=== PATIENT | male | born 1970 | race Hispanic/Latino ===

== ENCOUNTER 2025-02-08 06:55 | Inpatient (IN) | payer OTHER ==
[2025-02-08] MEDS ORDERED: Tranexamic Acid 1,000 MG/10 ML VIAL ONE ×2 (07:47→12:56)
[2025-02-08] MEDS ORDERED: Acetaminophen 500 MG TAB ONE (07:47)
[2025-02-08] MEDS ORDERED: Vancomycin HCl 1.5 GM VIAL ONE (07:48)
[2025-02-08 08:09] LABS: #Basophils 0.08 10x3/uL (0.0-0.2); #Eosinophils 0.47 10x3/uL (0.0-0.7); #Monocytes 0.95 10x3/uL (0.11-0.59); #Neutrophils 7.88 10x3/uL (1.40-6.50); %Basophils 0.7 % (0.0-1.0); %Eosinophils 3.8 % (0.0-10.0); %Lymphocytes 22.5 % (21.0-51.0); %Monocytes 7.8 % (0.0-10.0); %Neutrophils 64.5 % (42.0-75.0); Hematocrit 42.1 % (42.0-52.0); Hemoglobin 14.3 g/dL (14.0-18.0); Mean Corpuscular Hemoglobin 31.2 pg (27.0-31.0); Mean Corpuscular Volume 91.9 fL (78.0-98.0); Platelet Count 266 10x3/uL (130-400); Red Blood Cell (RBC) Count 4.58 mill/uL (4.70-6.10); White Blood Cell (WBC) Count 12.21 10x3/uL (4.8-10.8)
[2025-02-08 08:22] LABS: ALT (SGPT) 27 U/L (Less than 45); AST (SGOT) 30 U/L (11-34); Albumin 4.2 g/dL (3.1-4.5); Alkaline Phosphatase 73 U/L (40-110); Anion Gap 16 mmol/L (10-20); BUN (Urea Nitrogen) 14 mg/dL (8.4-25.7); Bilirubin, Total 0.7 mg/dL (0.3-1.2); Calc. Creatinine Clearance 176 mL/min (70-130); Calcium 9.5 mg/dL (7.8-10.44); Carbon Dioxide 24 mmol/L (22-29); Chloride 104 mmol/L (98-107); Globulin 3.3 g/dL (2.4-3.5); Glucose 170 mg/dL (70-105); Potassium 4.1 mmol/L (3.5-5.1); Sodium 140 mmol/L (136-145)
[2025-02-08 09:06] LABS: INR-International Normal Ratio 1.1; Prothrombin Time 14.4 sec (12.0-14.7)
[2025-02-08] MEDS ORDERED: fentaNYL PF 100 MCG/2 ML SYRINGE ONE ×4 (09:33→15:06)
[2025-02-08] MEDS ORDERED: PROPOFOL 20 ML ONE (09:33)
[2025-02-08] MEDS ORDERED: Rocuronium Bromide 10 MG/ML (10ML VIAL) ONE (09:35)
[2025-02-08] MEDS ORDERED: Lidocaine 1% PF 5 ML VIAL ONE (09:35)
[2025-02-08] MEDS ORDERED: CEFAZOLIN 2 GM VIAL ONE ×2 (10:20→16:24)
[2025-02-08] MEDS ORDERED: SUGAMMADEX SODIUM 200 MG/2 ML VIAL ONE (13:42)
[2025-02-08] MEDS ORDERED: Ondansetron PF 4 MG/2 ML Vial ONE (13:42)
[2025-02-08] MEDS ORDERED: Ondansetron PF 4 MG/2 ML Vial IVP PRN ×2 (14:30→15:25)
[2025-02-08] MEDS ORDERED: diphenhydrAMINE 25 MG CAP PO PRN ×2 (14:30→15:25)
[2025-02-08] MEDS ORDERED: oxyCODONE 5 MG TAB PO PRN (14:30)
[2025-02-08] MEDS ORDERED: diphenhydrAMINE 50 MG/ML VIAL IVP PRN (15:25)
[2025-02-08] MEDS ORDERED: diphenhydrAMINE 50 MG/ML VIAL IM PRN (15:25)
[2025-02-08] MEDS ORDERED: fentaNYL Citrate/PF 55 ML IV SCH (15:30)
[2025-02-08] MEDS ORDERED: Communication Order-Pharmacy FS SCH (15:30)
[2025-02-08] MEDS: Aspirin 81 mg Enteric Coated Tablet PO SCH (21:07)
[2025-02-08] MEDS: Senokot S 8.6-50 MG TAB PO SCH (21:10)
[2025-02-08] MEDS: Ferrous Gluconate 324 MG TAB PO SCH (21:10)
[2025-02-09 05:27] LABS: Anion Gap 11 mmol/L (10-20); BUN (Urea Nitrogen) 16 mg/dL (8.4-25.7); Calc. Creatinine Clearance 147 mL/min (70-130); Calcium 8.2 mg/dL (7.8-10.44); Carbon Dioxide 25 mmol/L (22-29); Chloride 103 mmol/L (98-107); Glucose 182 mg/dL (70-105); Potassium 3.9 mmol/L (3.5-5.1); Sodium 135 mmol/L (136-145)
[2025-02-09 05:34] LABS: Hematocrit 31.7 % (42.0-52.0); Hemoglobin 10.5 g/dL (14.0-18.0); Mean Corpuscular Hemoglobin 30.9 pg (27.0-31.0); Mean Corpuscular Volume 93.2 fL (78.0-98.0); Platelet Count 235 10x3/uL (130-400); Red Blood Cell (RBC) Count 3.40 mill/uL (4.70-6.10); White Blood Cell (WBC) Count 13.53 10x3/uL (4.8-10.8)
[2025-02-09] MEDS: Acetaminophen 500 MG TAB PO PRN (06:10)
[2025-02-09] MEDS: Methocarbamol 500 MG TAB PO PRN (09:44)
[2025-02-09] MEDS: Multivitamin W/ Minerals 1 TAB PO SCH (09:44)
[2025-02-09] MEDS: Ketorolac Tromethamine 30 MG (1 mL) VIAL IVP SCH (11:53)
[2025-02-09] MEDS: oxyCODONE 5 MG TAB PO PRN (15:01)
[2025-02-09] MEDS ORDERED: Glucagon 1 MG/ML KIT IM PRN (19:48)
[2025-02-09] MEDS ORDERED: Dextrose 50% Abboject 50 ML SYRINGE SLOW IVP PRN (19:48)
[2025-02-09] MEDS: Bupropion 150 MG SR.TAB PO SCH (21:30)
[2025-02-10 05:51] LABS: #Basophils 0.07 10x3/uL (0.0-0.2); #Eosinophils 0.20 10x3/uL (0.0-0.7); #Monocytes 1.12 10x3/uL (0.11-0.59); #Neutrophils 7.81 10x3/uL (1.40-6.50); %Basophils 0.6 % (0.0-1.0); %Eosinophils 1.7 % (0.0-10.0); %Lymphocytes 22.9 % (21.0-51.0); %Monocytes 9.3 % (0.0-10.0); %Neutrophils 64.4 % (42.0-75.0); Hematocrit 26.9 % (42.0-52.0); Hemoglobin 8.9 g/dL (14.0-18.0); Mean Corpuscular Hemoglobin 31.1 pg (27.0-31.0); Mean Corpuscular Volume 94.1 fL (78.0-98.0); Platelet Count 198 10x3/uL (130-400); Red Blood Cell (RBC) Count 2.86 mill/uL (4.70-6.10); White Blood Cell (WBC) Count 12.10 10x3/uL (4.8-10.8)
[2025-02-10 06:10] LABS: Anion Gap 6 mmol/L (10-20); BUN (Urea Nitrogen) 18 mg/dL (8.4-25.7); Calc. Creatinine Clearance 174 mL/min (70-130); Calcium 8.7 mg/dL (7.8-10.44); Carbon Dioxide 30 mmol/L (22-29); Chloride 103 mmol/L (98-107); Glucose 173 mg/dL (70-105); Magnesium 1.8 mg/dL (1.6-2.6); Potassium 3.9 mmol/L (3.5-5.1); Sodium 135 mmol/L (136-145)
[2025-02-10 09:55] LABS: Iron 20 ug/dL (65-175); Iron Binding Capacity, Total 190 mcg/dL (261-462)
[2025-02-10] MEDS: Losartan 25 MG TAB PO SCH (10:09)
[2025-02-10] MEDS: Insulin Glargine 30 UNITS/0.3 ML VIAL SC SCH (10:11)
[2025-02-10 15:16] VITALS: BMI 35.8
[2025-02-10 17:17] VITALS: BP 111/75; TEMP 97.8
[2025-02-11] MEDS ORDERED: FLU (Fluarix Triv) 25-26 (6MOS UP)/PF 45 MCG/0.5 ML Syringe IM ONE (09:00)
[2025-02-11] MEDS ORDERED: PNEUMOC 20-VAL CONJ-DIP CRM/PF 0.5 ML SYRINGE IM ONE (09:00)
== END 2025-02-10 19:36 | disposition home or self-care (01) | DRG 470 ==
LOC: SDC 06:55 → SURG B 14:31 → OBSVTOIN 02-09 15:08
PROVIDERS: ADMIT Student in an Organized Health Care Education/Training Program; ATTEND Student in an Organized Health Care Education/Training Program
PROC: 0SR90JZ Replacement of Right Hip Joint with Synthetic Substitute, Open Approach (ICD-10-PCS; principal; 2025-02-08)
DX: M87.9 Osteonecrosis, unspecified (principal); M16.11 Unilateral primary osteoarthritis, right hip; I10 Essential (primary) hypertension; E78.5 Hyperlipidemia, unspecified; E11.9 Type 2 diabetes mellitus without complications; F41.9 Anxiety disorder, unspecified; Z79.899 Other long term (current) drug therapy; Z98.890 Other specified postprocedural states; D50.9 Iron deficiency anemia, unspecified
CPT/HCPCS: 36415; 36416; 71045; 72170; 80048; 80053; 82728; 83036; 83540; 83550; 83735; 85025; 85027; 85610; 86850; 86900; 86901; 87081; C1776; J1815; J1885; J2405; J2704; J3010; J3373